=== PATIENT | female | born 1940 | race African-American/Black ===

== ENCOUNTER 2016-09-12 14:14 | Outpatient (CLI) ==
--- NOTE | 2016-09-14 07:57 | MAMMO ---
EXAM: Digital screening mammogram HISTORY: Screening COMPARISON: 06/05/2015 FINDINGS: Digital MLO and CC views of the right and left breast were performed. There are scatter ed fibroglandular densities. Stable benign bilateral scattered and vascular calcifications. There is no evidence for mass, asymmetry, distortion, or suspicious calcifications in either breast. IMPRESSION: 1. No evidence of malignancy in the right or left breast. 2. Annual screening mammogram is recommended in one year. BIRADS category 2, benign
== END 2016-09-12 14:15 | disposition home or self-care (01) ==
LOC: RAD 14:14
PROVIDERS: ATTEND Internal Medicine
DX: Z12.31 Encounter for screening mammogram for malignant neoplasm of breast (principal)